=== PATIENT | female | born 1995 | race Caucasian/White ===

== ENCOUNTER 2022-04-21 11:28 | Emergency (ER) | payer BC, SELFPAY ==
[2022-04-21 11:41] VITALS: BP 108/60; PULSE 96; RESP 18; TEMP 37; O2SAT 100; BMI 25.0
--- NOTE | 2022-04-21 12:13 | CRLHL7_ITS ---
For Patients: As a result of the Cures Act, medical imaging exams and procedure reports are released immediately into your electronic medical record. You may view this report before your referring provider. If you have questions, please contact your health care provider. INDICATION: COVID positive COMPARISON: None TECHNIQUE: Single-view chest radiograph FINDINGS: TUBES AND LINES: None. HEART AND MEDIASTINUM: The heart size is normal. The mediastinal contour appears normal for patient age. LUNGS AND PLEURAL SPACES: The lungs appear normal.The pleural spaces are unremarkable. OSSEOUS STRUCTURES: Age-appropriate appearance. No acute focal finding. IMPRESSION: No evidence of active pulmonary disease. Dictated by Tan Rodriguez MD @ 04/21/2022 12:55:20 PM (Electronically Signed)
--- NOTE | 2022-04-21 12:16 | ED.SOB ---
HPI - SOB/Dyspnea General Chief Complaint: Shortness of Breath/Dyspnea Stated Complaint: Short of breath Time Seen by Provider: 04/21/22 11:31 History of Present Illness HPI Narrative: Maya is a 26-year-old female patient who presents emergency department via POV with complaints of shortness of breath x2 days. Patient states that she was recently COVID positive on 04/13/2022. She reports 2 days following she was negative, and she believes she had been positive the week prior with URI symptoms reported. The patient states that she was exposed at her recent wedding, and she had home exposures with children positive with COVID as well. The patient denies fever, chills, or sweats. She reports that her symptoms had significantly improved until 1 day prior to presentation; after cutting the grass, she reported acute shortness of breath. She denies treatment prior to arrival, antivirals, or other evaluation. She denies nausea, vomiting, or diarrhea. She denies cough or chest pain. She is due her LMP approximately 3 days, and she reports that she may be . She has no other acute concerns or complaints. She presents to the emergency department for reassurance, per her report. See nursing notes for additional details. Related Data Home Medications Medication Instructions Recorded Confirmed omeprazole 20 mg capsule,delayed 20 mg PO DAILY 04/21/22 04/21/22 release Allergies Allergy/AdvReac Type Severity Reaction Status Date / Time No Known Drug Allergies Allergy Verified 04/21/22 11:45 Review of Systems Const: Reports: fatigue and malaise; Denies: fever or chills ENMT: Denies: throat pain Cardio: Reports: shortness of breath with exertion; Denies: chest pain or palpitations Resp: Reports: shortness of breath; Denies: cough, wheezing or pain on inspiration GI: Denies: abdominal pain, nausea, vomiting or diarrhea Integ/Breast: Denies: rash Neuro: Denies: headache Psych: Reports: anxiety Endo: Reports: fatigue Allergy/Immuno: Denies: wheezing PFSH PFSH Social History Smoking Status: Former smoker Do you use any of these nicotine containing products: None Second hand tobacco smoke exposure: No How often do you have a drink containing alcohol: monthly or less How often do you have six or more drinks on one occasion: Never AUDIT-C Alcohol total score: 1 Non-prescribed substance use: denies use Exam Const: Vital Signs, click to edit/add: Vital Signs - 24 hr 04/21/22 11:41 04/21/22 13:48 Temperature 98.6 F 97.3 F L Pulse Rate [Pulse Oximeter] 96 85 Respiratory Rate 18 16 Blood Pressure [Ri ght Upper Arm] 108/60 97/69 Pulse Oximetry 100 100 Documenting provider has reviewed patient's vital signs: yes Common normals: no apparent distress, oriented x3, no limitations, healthy appearing, alert and well nourished General appearance: cooperative, comfortable, well kempt and well developed; not in distress Orientation/consciousness: Yes awake, Yes oriented to person, Yes oriented to place and Yes oriented to time Resp: Common normals: normal respiratory effort, no use of accessory muscles and clear to auscultation bilaterally Effort & inspection: able to speak in complete sentences Auscultation: clear to auscultation bilaterally; no crackles, no rales, no rhonchi and no wheezes Cardio: Common normals: regular rate, regular rhythm, S1 normal heart sound and S2 normal heart sound Rate: regular rate Rhythm: regular rhythm Heart sounds: S1 normal and S2 normal Extremity: Common normals: normal to inspection, full ROM, normal capillary refill and no clubbing, cyanosis or edema Neuro: Common normals: oriented x3 Sensorium/orientation: awake, alert, oriented to person, oriented to place and oriented to time Psych: Common normals: mental status grossly normal, thought process normal, cooperative, affect normal and speech normal Appearance: well kempt Speech: normal speech Mood and affect: anxious Thought process: normal thought process Insight: insight good Judgement: judgment good Skin: Common normals: no rashes or lesions noted General skin exam: no rashes or lesions noted Course Course Hospital Course: Maya is a 26yo female patient with recent COVID diagnosis that presents to the ED after initial improvement and then recurrent symptoms one day prior to presentation. She tested positive on 04/13/2022. She is vaccinated, and she did not receive antiviral therapies. She denies acute concerns or complaints today, but she reports shortness of breath one day prior to presentation. We discussed the course of COVID and potential for recurrent infection with the latest strain. She will have CXR for evaluation of shortness of breath, but without other acute complaints, lab has been deferred. She is reassured on conservative measures for post-COVID treatment and symptom control. Reevaluation(s) Reevaluation #1: At time of discharge, with negative CXR, patient requested lab to confirm if she in-fact had COVID previously. IGM/IGG testing not available, PCR testing ordered at patient's request. Discussed the likelihood that could be negative if she is outside of the testing window. Patient verbalizes understanding. Vital Signs Vital signs: Initial Vital Signs Temperature 98.6 F 04/21/22 11:41 Temperature Source Temporal Artery Scan 04/21/22 11:41 Pulse Rate 96 04/21/22 11:41 Respiratory Rate 18 04/21/22 11:41 Blood Pressure 108/60 04/21/22 11:41 Blood Pressure Mean 76 04/21/22 11:41 Blood Pressure Position Sitting 04/21/22 11:41 Pulse Oximetry 100 04/21/22 11:41 Oxygen Delivery Method 04/21/22 11:41 Vital Signs Temperature 98.6 F 04/21/22 11:41 Pulse Rate 96 04/21/22 11:41 Respiratory Rate 18 04/21/22 11:41 Blood Pressure 108/60 04/21/22 11:41 Pulse Oximetry 100 04/21/22 11:41 Temperature 97.3 F L 04/21/22 13:48 Pulse Rate 85 04/21/22 13:48 Respiratory Rate 16 04/21/22 13:48 Blood Pressure 97/69 04/21/22 13:48 Pulse Oximetry 100 04/21/22 13:48 MDM - SOB/Dyspnea Lab Data Labs: Lab Results 04/21/22 Range/Units Unknown SARS-CoV-2 (PCR) Negative SARS-CoV-2 (Negative) Discharge Plan Discharge Clinical Impression: Shortness of breath with exposure to COVID-19 virus Patient Disposition: Home, Self-Care Condition: Stable Instructions: Shortness of Breath (ED) Additional Instructions: Thank you for choosing [facility] for your care today. Your COVID lab test is pending. Results for COVID testing can take up to 1-2hrs. Until that result is known for sure, you should fdc in place with no contact with other people. Plan not to treat with antibiotics. I recommend aggressive treatment of symptoms including: rest, increased fluids, and Ibuprofen and Tylenol as needed, and OTC medication of choice. Consider monitoring oxygen status with a home pulse oximeter. Goal greater than 90%. If your oxygen level decreases with exertion, rest and monitor for improvement. If no improvement noted with rest, you may consider additional evaluation in the emergency department. You may take Tylenol 1000mg, every 8hrs for relief of pain and fever. You should eat and drink to ensure adequate intake. Return if developing severe respiratory or GI distress, inability to eat or drink, decreased urine output, or other new/worsening symptoms develop. The course of the illness can take 10-14 days to improve, sometimes longer. Consider helpful treatments, including use of a vaporizer/humidifier, steamed bathroom, or cool outdoor air. You may also consider Vitamin D and C supplementation as well as probiotic. You should fdc in place with no contact with other people until you feel better, AND it has been at least 10 days since first symptoms noted, AND NO FEVER for 24hrs WITHOUT medications. If your symptoms persist after two weeks please contact your primary care physician for follow-up. If you have worsening, difficulty breathing, or inability to eat/drink please return to the ED for reevaluation. Activity Level: Activity as Tolerated Discharge Diet: Regular Prescriptions: No Action omeprazole 20 mg capsule,delayed release(DR/EC) 20 mg PO DAILY 0RF Follow Up/Referrals: Jessica Sexton DO [Primary Care Provider] - Stand Alone Forms: [employer] Info Instructions
[2022-04-21 13:48] VITALS: BP 97/69; PULSE 85; RESP 16; TEMP 36.3; O2SAT 100
[2022-04-21 15:33] LABS: SARS PCR* Negative SARS-CoV-2 (Negative)
== END 2022-04-21 13:55 | disposition home or self-care (01) ==
PROVIDERS: Emergency Provider Family Medicine; PCP Family Medicine
DX: R06.02 Shortness of breath (principal); Z20.822 Contact with and (suspected) exposure to COVID-19
CPT/HCPCS: 71045; 87635; 99282; 99283